=== PATIENT | female | born 1960 | race Caucasian/White ===

== ENCOUNTER 2018-01-12 10:07 | Day surgery (SDC) | payer OTHER ==
[~2018-01-12] VITALS: Ht 157.5 cm; Wt 64.4 kg
[2018-01-12] MEDS ORDERED: LIDOCAINE 2% 100 MG/5 ML UJET TP ONE (13:34)
[2018-01-12] MEDS ORDERED: KETOROLAC 30 MG/ML VIAL ONE (13:34)
[2018-01-12] MEDS ORDERED: fentaNYL 0.05 MG/ML VIAL ONE (13:58)
[2018-01-12] MEDS ORDERED: fentaNYL 0.05 MG/ML VIAL IVP ONE (14:10)
== END 2018-01-12 14:45 | disposition home or self-care (01) ==
LOC: MDS 10:07 → MMU 10:08 → MDS 14:45
PROVIDERS: ATTEND Internal Medicine Gastroenterology
DX: K57.30 Diverticulosis of large intestine without perforation or abscess without bleeding (principal); E66.3 Overweight; Z68.26 Body mass index [BMI] 26.0-26.9, adult; Z98.890 Other specified postprocedural states
CPT/HCPCS: 45378; J1885; J3010; J7120